=== PATIENT | male | born 1945 | race Caucasian/White ===

== ENCOUNTER → 2017-08-19 | Outpatient (CLI) | payer MEDICARE ==
[~2017-08-19] MED LIST: LISI20TA PO; NIA500ERT PO
[2017-08-19 10:15] LABS: BASOPHILS % (AUTO) 0 % (0-10); EOSINOPHILS # (AUTO) 0.2 10^3/uL (0.0-0.3); EOSINOPHILS % (AUTO) 3 % (0-10); HEMATOCRIT 42 % (40-54); HEMOGLOBIN 14.4 G/DL (13.3-17.7); LYMPHOCYTES # (AUTO) 1.9 X 10^3 (1.0-4.0); LYMPHOCYTES % (AUTO) 22 % (12-44); MEAN CORPUSCULAR HEMOGLOBIN 30 PG (25-34); MEAN CORPUSCULAR HGB CONC 34 G/DL (32-36); MEAN CORPUSCULAR VOLUME 87 FL (80-99); MONOCYTES # (AUTO) 0.9 X 10^3 (0.0-1.0); MONOCYTES % (AUTO) 11 % (0-12); NEUTROPHILS # (AUTO) 5.4 X 10^3 (1.8-7.8); NEUTROPHILS % (AUTO) 64 % (42-75); PLATELET COUNT 271 10^3/uL (130-400); RED BLOOD COUNT 4.78 10^6/uL (4.35-5.85); RED CELL DISTRIBUTION WIDTH 13.2 % (10.0-14.5); WHITE BLOOD COUNT 8.5 10^3/uL (4.3-11.0)
[2017-08-19 10:18] LABS: BILIRUBIN,URINE NEGATIVE (NEGATIVE); CLARITY,URINE CLEAR; COLOR,URINE YELLOW; GLUCOSE, URINE (UA) NEGATIVE (NEGATIVE); KETONES,URINE NEGATIVE (NEGATIVE); LEUKOCYTE ESTERASE ,URINE NEGATIVE (NEGATIVE); NITRITE,URINE NEGATIVE (NEGATIVE); PH,URINE 5 (5-9); PROTEIN,URINE 4+ (NEGATIVE); UROBILINOGEN,URINE NORMAL (NORMAL)
[2017-08-19 10:30] LABS: BACTERIA,URINE NEGATIVE /HPF; RBC,URINE RARE /HPF
[2017-08-19 10:35] LABS: ALBUMIN 4.3 GM/DL (3.2-4.5); CALCIUM 9.9 MG/DL (8.5-10.1); CREATININE SERUM 1.64 MG/DL (0.60-1.30); PHOSPHORUS 3.1 MG/DL (2.3-4.7); POTASSIUM 4.1 MMOL/L (3.6-5.0); URIC ACID 9.2 MG/DL (2.6-7.2)
[2017-08-22 06:54] LABS: HEPATITIS C ANTIBODY C Non-Reactive (Non-Reactive)
[2017-08-23 15:47] LABS: URINE IMMUNOFIXATION W/ INTERP Complete
== END ==
LOC: LAB 09:32
PROVIDERS: ATTEND Internal Medicine Nephrology
DX: I12.9 Hypertensive chronic kidney disease with stage 1 through stage 4 chronic kidney disease, or unspecified chronic kidney disease (principal); N18.3 Chronic kidney disease, stage 3 (moderate); R53.83 Other fatigue; R80.1 Persistent proteinuria, unspecified
CPT/HCPCS: 36415; 80069; 80074; 81000; 82306; 82570; 83883; 83970; 84155; 84156; 84165; 84166; 84550; 85025; 86256; 86335; 86430

== ENCOUNTER → 2017-08-22 | Outpatient (CLI) | payer MEDICARE ==
--- NOTE | 2017-08-22 11:43 | Diagnostic Imaging Report ---
INDICATION: Hypertension. FINDINGS: The right kidney measures 10.5 x 5.5 x 5.8 cm and the left kidney measures 10.1 x 6.1 x 5.3 cm. The cortical thickness and echogenicity appear normal bilaterally. No calculi are seen. There is no hydronephrosis. There is a cyst in the mid left kidney measuring approximately 1.5 cm in diameter. Bilateral ureteral jets are visualized within the urinary bladder. IMPRESSION: Small left renal cyst. The study is otherwise unremarkable. Dictated by: Dictated on workstation # [id number]
== END ==
LOC: RAD 10:40
PROVIDERS: ATTEND Internal Medicine Nephrology
DX: I12.9 Hypertensive chronic kidney disease with stage 1 through stage 4 chronic kidney disease, or unspecified chronic kidney disease (principal); N18.3 Chronic kidney disease, stage 3 (moderate); N28.1 Cyst of kidney, acquired
CPT/HCPCS: 76770

== ENCOUNTER → 2017-09-08 | Outpatient (CLI) | payer MEDICARE ==
[2017-09-08 07:18] LABS: BASOPHILS % (AUTO) 0 % (0-10); BILIRUBIN,URINE NEGATIVE (NEGATIVE); CLARITY,URINE CLEAR; COLOR,URINE YELLOW; EOSINOPHILS # (AUTO) 0.3 10^3/uL (0.0-0.3); EOSINOPHILS % (AUTO) 4 % (0-10); GLUCOSE, URINE (UA) NEGATIVE (NEGATIVE); HEMATOCRIT 41 % (40-54); HEMOGLOBIN 14.1 G/DL (13.3-17.7); KETONES,URINE NEGATIVE (NEGATIVE); LEUKOCYTE ESTERASE ,URINE NEGATIVE (NEGATIVE); LYMPHOCYTES % (AUTO) 29 % (12-44); MEAN CORPUSCULAR HEMOGLOBIN 30 PG (25-34); MEAN CORPUSCULAR HGB CONC 34 G/DL (32-36); MEAN CORPUSCULAR VOLUME 87 FL (80-99); MEAN PLATELET VOLUME 9.5 FL (7.4-10.4); MONOCYTES # (AUTO) 0.9 X 10^3 (0.0-1.0); MONOCYTES % (AUTO) 13 % (0-12); NEUTROPHILS # (AUTO) 3.9 X 10^3 (1.8-7.8); NEUTROPHILS % (AUTO) 54 % (42-75); NITRITE,URINE NEGATIVE (NEGATIVE); PH,URINE 5 (5-9); PLATELET COUNT 245 10^3/uL (130-400); PROTEIN,URINE 3+ (NEGATIVE); RED BLOOD COUNT 4.76 10^6/uL (4.35-5.85); RED CELL DISTRIBUTION WIDTH 13.3 % (10.0-14.5); UROBILINOGEN,URINE NORMAL (NORMAL); WHITE BLOOD COUNT 7.1 10^3/uL (4.3-11.0)
[2017-09-08 07:36] LABS: ALBUMIN 4.4 GM/DL (3.2-4.5); CALCIUM 10.2 MG/DL (8.5-10.1); CREATININE SERUM 1.61 MG/DL (0.60-1.30); PHOSPHORUS 2.9 MG/DL (2.3-4.7); POTASSIUM 4.2 MMOL/L (3.6-5.0)
[2017-09-08 08:28] LABS: BACTERIA,URINE NEGATIVE /HPF; SQUAMOUS EPITHELIAL CELL,UR RARE /HPF
== END ==
LOC: LAB 06:57
PROVIDERS: ATTEND Internal Medicine Nephrology
DX: I12.9 Hypertensive chronic kidney disease with stage 1 through stage 4 chronic kidney disease, or unspecified chronic kidney disease (principal); N18.3 Chronic kidney disease, stage 3 (moderate); R80.1 Persistent proteinuria, unspecified
CPT/HCPCS: 36415; 80069; 81000; 82570; 84156; 85025

== ENCOUNTER → 2017-09-20 | Outpatient (CLI) | payer MEDICARE ==
--- NOTE | 2017-09-20 17:09 | Diagnostic Imaging Report ---
PARATHYROID PLANAR W/ SPECT CT Technique: Planar scintigraphic imaging of the head and neck was performed after the intravenous administration of 21.2 mCi of technetium 99m sestamibi. SPECT imaging was then performed. Indication: Hyperparathyroidism. Comparison: None available. Findings: Planar scintigraphic imaging demonstrated expected radiotracer activity within the thyroid and salivary glands at 20 minutes. Delayed phase images at 2 hours demonstrate expected washout of radiotracer activity. There are no foci of abnormal radiotracer activity around the thyroid gland to suggest parathyroid adenoma. SPECT imaging shows expected radiotracer activity within salivary glands and no abnormal foci of increased radiotracer activity. Impression: 1. No scintigraphic or SPECT imaging findings to indicate hyperfunctioning parathyroid adenoma. Dictated by: Dictated on workstation # [id number]
== END ==
LOC: CARD 11:43
PROVIDERS: ATTEND Internal Medicine Nephrology
DX: D35.1 Benign neoplasm of parathyroid gland (principal)
CPT/HCPCS: 78072

== ENCOUNTER 2017-09-30 14:38 | Outpatient (RCR) | payer MEDICARE | END 2017-12-29 | disposition home or self-care (01) | LOC: ONC 14:38 | PROVIDERS: ATTEND Internal Medicine Hematology & Oncology | DX: R80.9 Proteinuria, unspecified (principal); R77.9 Abnormality of plasma protein, unspecified; I12.9 Hypertensive chronic kidney disease with stage 1 through stage 4 chronic kidney disease, or unspecified chronic kidney disease; N18.3 Chronic kidney disease, stage 3 (moderate); E78.5 Hyperlipidemia, unspecified; Z87.891 Personal history of nicotine dependence; Z79.899 Other long term (current) drug therapy | CPT/HCPCS: 82784; 83615; 99214 ==

== ENCOUNTER → 2017-10-19 | Outpatient (CLI) | payer MEDICARE ==
[2017-10-19 07:21] LABS: ALBUMIN 4.2 GM/DL (3.2-4.5); CALCIUM 9.8 MG/DL (8.5-10.1); CREATININE SERUM 1.43 MG/DL (0.60-1.30); PHOSPHORUS 3.3 MG/DL (2.3-4.7); POTASSIUM 4.4 MMOL/L (3.6-5.0)
== END ==
LOC: LAB 06:50
PROVIDERS: ATTEND Internal Medicine Nephrology
DX: N18.3 Chronic kidney disease, stage 3 (moderate) (principal)
CPT/HCPCS: 36415; 80069

== ENCOUNTER → 2017-11-20 | Outpatient (CLI) | payer MEDICARE ==
--- NOTE | 2017-11-20 17:43 | Diagnostic Imaging Report ---
Left knee at 5:19 p.m. INDICATION: Leg pain. Three views were obtained. There are no prior studies available for comparison. FINDINGS: There is no fracture, dislocation or acute bony abnormality evident. The knee joint is fairly well maintained. There does seem to be at least a moderate joint effusion present. Vascular calcifications are also seen posterior to the knee joint. IMPRESSION: 1. There is no evidence for an acute bony abnormality. 2. There is at least a moderate joint effusion present. 3. If there is clinical concern regarding internal derangement, then MRI would be recommended for additional study. 4. These results were discussed with SUKHWINDER Milian. Dictated by: Dictated on workstation # [id number]
== END ==
LOC: RAD 16:20
PROVIDERS: ATTEND Nurse Practitioner Family
DX: M25.462 Effusion, left knee (principal)
CPT/HCPCS: 73562

== ENCOUNTER → 2017-12-02 | Outpatient (CLI) | payer MEDICARE | LOC: LAB 06:49 | PROVIDERS: ATTEND Internal Medicine | DX: M17.12 Unilateral primary osteoarthritis, left knee (principal) | CPT/HCPCS: 36415; 84550 ==

== ENCOUNTER → 2017-12-02 | Outpatient (CLI) | payer MEDICARE ==
[2017-12-02 07:08] LABS: BASOPHILS % (AUTO) 1 % (0-10); EOSINOPHILS # (AUTO) 0.2 10^3/uL (0.0-0.3); EOSINOPHILS % (AUTO) 3 % (0-10); HEMATOCRIT 41 % (40-54); HEMOGLOBIN 13.9 G/DL (13.3-17.7); LYMPHOCYTES # (AUTO) 1.7 X 10^3 (1.0-4.0); LYMPHOCYTES % (AUTO) 22 % (12-44); MEAN CORPUSCULAR HEMOGLOBIN 30 PG (25-34); MEAN CORPUSCULAR HGB CONC 34 G/DL (32-36); MEAN CORPUSCULAR VOLUME 87 FL (80-99); MEAN PLATELET VOLUME 9.5 FL (7.4-10.4); MONOCYTES % (AUTO) 12 % (0-12); NEUTROPHILS % (AUTO) 63 % (42-75); PLATELET COUNT 309 10^3/uL (130-400); RED BLOOD COUNT 4.69 10^6/uL (4.35-5.85); RED CELL DISTRIBUTION WIDTH 13.3 % (10.0-14.5); WHITE BLOOD COUNT 7.9 10^3/uL (4.3-11.0)
[2017-12-02 07:24] LABS: ALBUMIN 4.2 GM/DL (3.2-4.5); CALCIUM 10.1 MG/DL (8.5-10.1); CREATININE SERUM 1.54 MG/DL (0.60-1.30); PHOSPHORUS 3.1 MG/DL (2.3-4.7); POTASSIUM 4.6 MMOL/L (3.6-5.0)
[2017-12-02 08:18] LABS: BILIRUBIN,URINE NEGATIVE (NEGATIVE); CLARITY,URINE CLEAR; COLOR,URINE YELLOW; GLUCOSE, URINE (UA) NEGATIVE (NEGATIVE); KETONES,URINE NEGATIVE (NEGATIVE); LEUKOCYTE ESTERASE ,URINE 1+ (NEGATIVE); NITRITE,URINE NEGATIVE (NEGATIVE); PH,URINE 5 (5-9); PROTEIN,URINE 4+ (NEGATIVE); UROBILINOGEN,URINE NORMAL (NORMAL)
[2017-12-02 08:29] LABS: BACTERIA,URINE TRACE /HPF; HYALINE CASTS, URINE 0-2 /LPF; WBC,URINE RARE /HPF
== END ==
LOC: LAB 06:51
PROVIDERS: ATTEND Internal Medicine Nephrology
DX: N18.3 Chronic kidney disease, stage 3 (moderate) (principal); R80.1 Persistent proteinuria, unspecified
CPT/HCPCS: 36415; 80069; 81000; 82570; 84156; 85025

== ENCOUNTER → 2017-12-03 | Outpatient (CLI) | payer MEDICARE ==
--- NOTE | 2017-12-03 11:52 | Diagnostic Imaging Report ---
PROCEDURE: MRI left joint lower extremity without contrast. TECHNIQUE: Multiplanar, multisequence non contrast-enhanced MRI of the left lower extremity was accomplished. INDICATION: Left knee pain, difficulty walking. Symptoms for 2 weeks. No known injury. COMPARISON: Radiographs from 11/20/2017 FINDINGS: No acute fracture is seen in the left knee. Alignment is normal. There is minimal bone marrow edema at the peripheral aspect of the medial tibial plateau, likely degenerative. Mild bone marrow edema and subcortical cystlike changes seen at the median ridge of the patella. Small marginal osteophytes are noted at the medial compartment. There is a large left knee joint effusion. A small Lepe's cyst is present. Articular cartilage at the patellofemoral compartment demonstrates full-thickness fissuring overlying the median ridge, with delamination-type defects at the peripheral lateral facet. The medial compartment demonstrates moderate thinning, heterogeneity, surface irregularity, with a small near full-thickness defect at the medial femoral condyle. The lateral compartment demonstrates mild thinning and heterogeneity. There is a markedly complex tear of the posterior horn and body of the medial meniscus, which is partially extruded. The lateral meniscus demonstrates mildly increased signal posteriorly, but otherwise appears intact. The anterior cruciate ligament and posterior cruciate ligaments are intact. The medial collateral ligament is intact, with mild bowing due to the meniscal pathology. The lateral collateral ligamentous complex appears intact. There is mild tendinosis of the popliteus tendon. The extensor mechanism is intact. There is moderate edema in Hoffa's fat pad. There is moderate deep soft tissue edema about the knee with mild subcutaneous edema anteriorly. There is enthesopathy at the superior patella. IMPRESSION: 1. Markedly complex tear of the posterior horn and body of the partially extruded medial meniscus in the left knee. 2. Mild tricompartmental cartilage loss and osteoarthritis. 3. Large left knee joint effusion. Small Lepe's cyst. Dictated by: Dictated on workstation # [id number]
== END ==
LOC: RAD 09:29
PROVIDERS: ATTEND Nurse Practitioner Family
DX: S83.242A Other tear of medial meniscus, current injury, left knee, initial encounter (principal); M17.12 Unilateral primary osteoarthritis, left knee; M71.22 Synovial cyst of popliteal space [Baker], left knee
CPT/HCPCS: 73721

== ENCOUNTER → 2020-09-16 | Outpatient (CLI) | payer MEDICARE ==
--- NOTE | 2020-09-16 09:34 | Diagnostic Imaging Report ---
INDICATION: Hyperparathyroidism, screening for osteoporosis. COMPARISON: None available. FINDINGS: AP Spine L1-L4: [BMD (g/cm2): 1.056] [T-Score: -1.5] [Z-Score: -1.6] [BMD Previous: na] [BMD % Change: na] LT Hip Neck: [BMD (g/cm2): 0.953] [T-Score: -0.9] [Z-Score: 0.0] LT Hip Total: [BMD (g/cm2):1.044] [T-Score:-0.4] [Z-Score: 0.0] [BMD Previous: na] [BMD % Change: na] RT Hip Neck: [BMD (g/cm2):0.893] [T-Score:-1.4] [Z-Score:-0.5] RT Hip Total: [BMD (g/cm2):0.983] [T-score:-0.8] [Z-Score:-0.4] [BMD Previous:na] [BMD % Change:na] *Indicates significant change from prior examination based on 95% confidence level. World Health Organization criteria for BMD interpretation classify patients as Normal (T-score at or above -1.0), Osteopenic (T-score between -1.0 and -2.5) or Osteoporotic (T-score at or below -2.5). LIMITATIONS AND MODIFICATION: None. FRACTURE RISK (FRAX SCORE): The ten year probability of (%): Major Osteoporotic Fracture: [6.0] Hip Fracture: [1.9] IMPRESSION: 1. Osteopenia (Low bone mass). 2. Baseline examination. 3. See below National Osteoporosis Foundation guidelines on when to potentially initiate pharmacologic therapy. Based on the National Osteoporosis Foundation Guidelines, pharmacologic treatment should be initiated in any of the following, unless clinical conditions suggest otherwise: * Any patient with prior fragility fracture of the hip or vertebrae. A spine fracture indicates 5X risk for subsequent spine fracture and 2X risk for subsequent hip fracture. * Osteoporosis (T-score <-2.5). * Postmenopausal women and men age 50 and older with low bone mass/osteopenia (T-score between -1.0 and -2.5) by DXA and 10-year major osteoporotic fracture greater than 20% or a 10-year probability of hip fracture greater than 3%. These fracture risks are supplied above in the FRAX score, if applicable. * Clinician judgement and/or patient preferences may indicate treatment for people with 10-year fracture probabilities above or below these levels. Dictated by: Dictated on workstation # [id number]
== END ==
LOC: RAD 06:59
PROVIDERS: ATTEND Internal Medicine
DX: Z13.820 Encounter for screening for osteoporosis (principal); M85.80 Other specified disorders of bone density and structure, unspecified site; E21.3 Hyperparathyroidism, unspecified
CPT/HCPCS: 77080

== ENCOUNTER → 2022-02-17 | Outpatient (CLI) | payer MEDICARE ==
--- NOTE | 2022-02-17 10:54 | Diagnostic Imaging Report ---
INDICATION: COUGH, CHEST CONGESTION. TECHNIQUE: Two view chest 10:41 AM CORRELATION STUDY: None FINDINGS: Heart size enlarged. Vasculature within normal limits. Calcification aortic arch. Small left and trace right pleural effusion. Minimal atelectasis or less likely infiltrate lung bases. Remaining lung dobbins clear. Slight accentuated thoracic kyphosis degenerative changes through the thoracic spine. Vascular calcification is present. IMPRESSION: 1. Small left and trace right pleural effusion. 2. Cardiac enlargement without failure. Dictated by: Dictated on workstation # [id number]
== END ==
LOC: RAD 10:20
PROVIDERS: ATTEND Internal Medicine
DX: J90 Pleural effusion, not elsewhere classified (principal); I51.7 Cardiomegaly
CPT/HCPCS: 71046

== ENCOUNTER → 2022-06-28 | Outpatient (CLI) | payer MEDICARE ==
--- NOTE | 2022-06-28 16:38 | Diagnostic Imaging Report ---
INDICATION: Status post COVID. Cough and congestion COMPARISON: 02/17/2022 FINDINGS: Single frontal radiographic view of the chest was obtained and demonstrates mild cardiomegaly and mild prominence pulmonary vessels. Since previous exam, there has been interval increase of left-sided effusion. Small right effusion persists as well, but appears stable. There is no pneumothorax. Osseous structures show no gross acute abnormalities. IMPRESSION: 1. Interval increase in size of moderate left effusion. 2. Small right basilar effusion. 3. Cardiomegaly with probable mild vascular congestion. Dictated by: Dictated on workstation # [id number]
== END ==
LOC: RAD 13:14
PROVIDERS: ATTEND Nurse Practitioner Family
DX: I51.7 Cardiomegaly (principal); J90 Pleural effusion, not elsewhere classified; U09.9 Post COVID-19 condition, unspecified
CPT/HCPCS: 71045

== ENCOUNTER → 2022-07-02 | Outpatient (CLI) | payer MEDICARE | LOC: CARD 09:30 | PROVIDERS: ATTEND Nurse Practitioner Family | DX: I51.7 Cardiomegaly (principal); J90 Pleural effusion, not elsewhere classified; Z86.16 Personal history of COVID-19 | CPT/HCPCS: 93306 ==

== ENCOUNTER → 2022-11-17 | Outpatient (CLI) | payer MEDICARE ==
--- NOTE | 2022-11-17 08:36 | Diagnostic Imaging Report ---
INDICATION: Renal failure. Dialysis. COMPARISON: 06/28/2022 FINDINGS: Frontal and lateral radiographic views of the chest were obtained and demonstrate persistent, slightly increased moderate left-sided pleural effusion. Cardiac silhouette is partially obscured, but appears enlarged. Pulmonary vasculature is also slightly prominent. There is no large effusion on the right. No pneumothorax is seen on either side. Osseous structures show no acute abnormalities. IMPRESSION: 1. Cardiomegaly with pulmonary vascular congestion. 2. Moderate left effusion. Dictated by: Dictated on workstation # [id number]
== END ==
LOC: RAD 07:02
PROVIDERS: ATTEND Internal Medicine Nephrology
DX: I51.7 Cardiomegaly (principal); J90 Pleural effusion, not elsewhere classified; N18.5 Chronic kidney disease, stage 5; Z99.2 Dependence on renal dialysis
CPT/HCPCS: 71046